=== PATIENT | female | born 1980 | race Caucasian/White ===

== ENCOUNTER → 2018-06-08 | Outpatient (CLI) | payer OTHER ==
[~2018-06-08] MED LIST: DIAZ10 PO; FOLI400; IBUP800; MULVITMINE; PANT40 PO; PROM25; [UNRECOGNIZED DRUG - REMARK]
== END | disposition home or self-care (01) ==
LOC: PLD 14:15 → LAB SHORT 14:15
DX: N92.1 Excessive and frequent menstruation with irregular cycle (principal)
CPT/HCPCS: 88305

== ENCOUNTER 2018-07-27 06:11 | Day surgery (SDC) | payer OTHER ==
[~2018-07-27] VITALS: Ht 177.8 cm; Wt 84.4 kg
[~2018-07-27 06:11] MED LIST changes: +CHOL10002 PO; +IBUP600 PO; +Inderal60 MG PO; +PROG100 PO; +Permethrin60 GM TOP; +SELENIUM PO; +VITAMIN E PO
--- NOTE | 2018-07-27 06:41 | NUR ---
History, Chart, Medications and Allergies reviewed before start of procedure. Patient confirms NPO status and agrees with scheduled surgery. Lungs clear T/O to Auscultation.
[2018-07-27] MEDS ORDERED: LEVO-T25 MCG PO (07:05)
--- NOTE | 2018-07-27 07:35 | NUR ---
0728- AFTER DR HARDY SPOKE WITH PT, PT GOT UP TO VOID BEFORE GOING TO OR.
--- NOTE | 2018-07-27 19:06 | NUR ---
PT HAS BEEN STABLE POST OP. PT UP TO AMBULATE HALLWAY X1, MIN ASSIST. DAO DRAINING WELL. CONT IV FLUIDS. DAO TO BE DC'D IN AM. LIGHT STEPHON DRAINAGE, PAD X1. PT SENSITIVE TO NARCOTICS, MEDICATED PER EMAR X1 WITH OXYCODONE. PT HAD MILD ITCHING AND NAUSEA. REJI PO FLUIDS WELL. POOR APPETITE. NO FLATUS YET, SIMETHICONE GIVEN X1. PAS TO BLE. STERI STRIPS CDI. PLAN TO DC IN AM. PT USES CALL LIGHT APPROPRIATELY NEEDED.
--- NOTE | 2018-07-28 04:29 | NUR ---
PT IS POD1 LAVH. VSS, A/O. MEDICATED FOR PAIN WITH TYLENOL AND TORDOL. PT DENIED NEED FOR NARCOTIC PAIN MANAGEMENT. SURGICAL SITES WNL. SCANT VAGINAL BLEED. PLAN IS TO DC DAO THIS AM. TOLERATED CLEAR LIQ DIET BEFORE BED. NO ACUTE CONCERNS AT THIS TIME. WILL CTM AND REPORT TO DAY RN.
[2018-07-28 04:35] LABS: BASOPHILS ABSOLUTE AUTO 0.01 K/mm3 (0.00-0.23); BASOPHILS PERCENT AUTO 0 % (0-2); EOSINOPHILS PERCENT AUTO 0 % (0-6); Hematocrit 31.4 % (33.0-51.0); Hemoglobin 10.7 g/dL (11.5-16.0); IMMATURE GRAN ABSOLUTE AUTO 0.05 K/mm3 (0.00-0.10); IMMATURE GRAN PERCENT AUTO 0 % (0-1); LYMPHOCYTES ABSOLUTE AUTO 3.17 K/mm3 (0.84-5.20); LYMPHOCYTES PERCENT AUTO 22 % (21-46); MONOCYTES PERCENT AUTO 6 % (4-13); Mean Corpuscular HGB 31.3 pg (26.0-34.0); Mean Corpuscular HGB Conc 34.1 g/dL (31.5-36.5); Mean Corpuscular Volume 92 fL (80-100); Mean Platelet Volume 9.7 fL (9.1-12.4); NEUTROPHILS ABSOLUTE AUTO 10.16 K/mm3 (1.96-9.15); NEUTROPHILS PERCENT AUTO 71 % (41-73); Platelet Count 264 K/mm3 (150-400); RDW Coefficient Variation 12.6 % (11.7-14.2); RDW Standard Deviation 42.2 fL (35.1-46.3); Red Blood Cell Count 3.42 M/mm3 (3.80-5.20); White Blood Cell Count 14.29 K/mm3 (4.00-11.30)
[2018-07-28] MEDS ORDERED: ACET325 PO (09:48)
[2018-07-28] MEDS ORDERED: DIPH50 PO (09:49)
[2018-07-28] MEDS ORDERED: OXYC5 PO (09:50)
[2018-07-28] MEDS ORDERED: DOCU100 PO (09:50)
[2018-07-28] MEDS ORDERED: ONDA4ODT MM (09:51)
--- NOTE | 2018-07-28 10:44 | NUR ---
DISCHARGE PT EDUCATED ON AND RECEIVED PRINTED DC INSTRUCTIONS. PT VERB AN UNDERSTANDING. RX FAXED OVER TO [facility] FOR OXYCODONE GIVEN TO PT. IV DC'D. PT ABLE TO AMBULATED HALLWAY, VOID, PAIN MANAGED, AND REJI PO INTAKE. PT GATHERING ALL PERSONAL BELONGINGS.
== END 2018-07-28 12:28 | disposition home or self-care (01) ==
LOC: ORSCMMR 06:11 → ORD 07:30 → ORSCMMR 07:30 → SURS 11:52 → ORSCMMR 07-28 12:28
PROVIDERS: Obstetrics & Gynecology
PROC: 0UT7FZZ Resection of Bilateral Fallopian Tubes, Via Natural or Artificial Opening With Percutaneous Endoscopic Assistance (ICD-10-PCS; principal; 2018-07-27 07:30)
PROC: 0UQF0ZZ Repair Cul-de-sac, Open Approach (ICD-10-PCS; principal; 2018-07-27 07:30)
PROC: 0UT9FZZ Resection of Uterus, Via Natural or Artificial Opening With Percutaneous Endoscopic Assistance (ICD-10-PCS; principal; 2018-07-27 07:30)
PROC: 0JQC0ZZ Repair Pelvic Region Subcutaneous Tissue and Fascia, Open Approach (ICD-10-PCS; principal; 2018-07-27 07:30)
DX: N92.1 Excessive and frequent menstruation with irregular cycle (principal); R10.2 Pelvic and perineal pain; N94.10 Unspecified dyspareunia; N81.4 Uterovaginal prolapse, unspecified; N81.11 Cystocele, midline; N81.6 Rectocele; E03.9 Hypothyroidism, unspecified; Z79.899 Other long term (current) drug therapy
CPT/HCPCS: 36415; 85025; 88307; J0690; J1100; J1885; J2250; J2405; J2710; J2765; J3010; J7120